=== PATIENT | female | born 1940 | race Caucasian/White ===

== ENCOUNTER → 2016-11-30 | Outpatient (CLI) | payer OTHER ==
[~2016-11-30] MED LIST: ATIVAN1 MG PO; BENICAR40 MG PO; CLONAZEPAM0.5 MG PO; DOK PLUS TABLE1 EACH PO; ECOTRIN325 MG PO; HYDROCODON-ACE1 EAC7 PO; IRON325 M1 PO; KEFLEX500 MG PO; LOPRESSOR50 MG PO; LOSARTAN-HCTZ1 EAC1 PO; LYRICA100 MG PO; MELATONIN5 M1 PO; NORCO 10/3251 TABLET PO; NORCO 7.5/321 TABLET PO; PAXIL20 MG PO; PAXIL40 MG PO; TOPROL XL50 MG PO; VALIUM5 MG PO; VICODIN ES 7.51 EAC1 PO; ZOCOR40 MG PO
== END | disposition home or self-care (01) ==
DX: R13.11 Dysphagia, oral phase (principal); R13.13 Dysphagia, pharyngeal phase; K21.9 Gastro-esophageal reflux disease without esophagitis
CPT/HCPCS: 92611 GN; G8996 GN; G8997 GN; G8998 GN